=== PATIENT | male | born 1960 | race Caucasian/White ===

== ENCOUNTER → 2021-06-03 15:00 | Outpatient (REF) | payer BC, SELFPAY | LOC: ANHLAB 15:00 | PROVIDERS: PCP Family Medicine Sports Medicine; Visit Provider Nurse Practitioner | DX: C44.311 Basal cell carcinoma of skin of nose (principal); C44.529 Squamous cell carcinoma of skin of other part of trunk | CPT/HCPCS: 88305 ==

== ENCOUNTER → 2021-08-11 07:00 | Outpatient (REF) | payer BC, SELFPAY | LOC: ANHLAB 07:00 | PROVIDERS: PCP Family Medicine Sports Medicine; Visit Provider Nurse Practitioner | DX: C44.311 Basal cell carcinoma of skin of nose (principal); C44.529 Squamous cell carcinoma of skin of other part of trunk | CPT/HCPCS: 88305; 88331 ==